=== PATIENT | male | born 1975 | race Caucasian/White ===

== ENCOUNTER 2019-01-23 09:03 | Emergency (ER) | payer OTHER ==
--- NOTE | 2019-01-23 09:17 | ED Physician Documentation ---
Low Back Pain - HISTORIAN Historian: patient - HPI Stated Complaint: back spasm Chief Complaint: Low Back Pain/ Injury Additional Information: Patient presents to ED with a 1 week history of right low back pain. Patient has a history of back pain but denies any injury/trauma. Patient works as a manual labor and was working on a project a week ago where he was bent over for most of the day. The following day he was unable to stand up straight due to the back pain. He has been taking over the counter meds with some improvement, however, today he woke up and it was worse. He denies any loss of bowel or bladder control. Patient reports some occasional pain going down the back of his legs but it is fleeting. History: back pain Onset: days ago (7) Duration: continues in ED Context: bending Where: work Severity: moderate Quality: sharp, similar- prior back pain Associated Symptoms: denies: fever, nausea, vomiting, difficulty walking Worsened By:: upright position, other (bending over) Relieved By: other (sitting, leaning forward) - ROS CONST: no problems CVS/RESP: denies: chest pain, shortness of breath EYES/ENT: denies: problems with vision MS/SKIN/LYMPH: denies: calf pain, neck pain Neuro/Psych: denies: headache GI/: denies: abdominal pain - PAST HX Past History: back pain, other. denies: back injury Other History: diabetes Type 2, hypertension Surgeries/Procedures: denies: back surgery Allergies/Adverse Reactions: Allergies Allergy/AdvReac Type Severity Reaction Status Date / Time No Known Allergies Allergy Verified 01/23/19 09:13 Home Medications: Ambulatory Orders Medication Instructions Recorded Losartan Potassium [Cozaar] 1 tab PO DAILY 01/23/19 Metformin HCl [Metformin ER 1,000 mg PO DAILY 01/23/19 Osmotic] Orphenadrine (Nf) [Norflex] 100 mg PO TID PRN #60 tab 01/23/19 predniSONE [Deltasone] 10 mg PO DAILY #12 tablet 01/23/19 - SOCIAL HX Smoking History: non-smoker Alcohol Use: none Drug Use: none - FAMILY HX Family History: none - VITAL SIGNS Vital Signs: Vital Signs Temp Pulse Resp BP Pulse Ox 97.1 F L 86 19 132/111 96 01/23/19 09:10 01/23/19 09:10 01/23/19 09:10 01/23/19 09:10 01/23/19 09:10 - REVIEWED ASSESSMENTS Nursing Assessment Reviewed: Yes Vitals Reviewed: Yes ED Results Lab/Radiology - Orders Orders: ED Orders Category Date Time Status Place IV Lock 1T Care 01/23/19 09:13 Active Ketorolac Tromethamine [Toradol] Med 01/23/19 09:13 Discontinued 30 mg IV NOW ONE LORazepam [Ativan] Med 01/23/19 09:41 Once 1 mg IV NOW ONE Orphenadrine Citrate [Norflex] Med 01/23/19 09:13 Discontinued 60 mg IV NOW ONE methylPREDNISolone SOD SUCC [SOLU-Medrol] Med 01/23/19 09:13 Discontinued 125 mg IVP NOW ONE Low Back Pain/Injury - Physical Exam General Appearance: mild distress (in pain) EENT: CR Neck: non-tender, painless ROM Resp/CVS: chest non-tender, breath sounds nml, heart sounds nml Abdomen: non-tender Back: muscle spasm (right posterior iliac crest/ Tender over right SI joint) Straight Leg Raising: Negative Left, Negative Right Neuro/Psych: oriented x3, motor nml. No: difficulty walking Skin: warm/dry Extremities: non-tender, normal range of motion, no edema Discharge Clincal Impression: Low back pain Qualifiers: Chronicity: acute Back pain laterality: right Sciatica presence: without sciatica Qualified Code(s): M54.5 - Low back pain Prescriptions: Orphenadrine (Nf) [Norflex] 100 mg PO TID PRN #60 tab PRN Reason: back pain/spasm predniSONE [Deltasone] 10 mg PO DAILY #12 tablet Referrals: Jp Clement MD [Primary Care Provider] - 2 Days Additional Instructions: 1. Norflex every 8 hours as needed for back pain/muscle spasm 2. Apply Ice or heat to affected area as needed for comfort 3. Apply over the counter biofreeze, lidocaine patches, aspercreme, and/or icyhot as needed for comfort 4. Consider massage therapy and accupuncture 5. Pain management and Physical therapy will be contacting you for an appointment. The contact number is [phone]. 6. Follow up with PCP within 1 week 7. Return to the ER for new or worsening symptoms Condition: Stable Disposition: 01 HOME, SELF-CARE Decision to Admit: NO Date of Decison to Admit: 01/23/19 Decision Time: 09:49
[2019-01-23] MEDS: ORPHENADRINE CITRATE 60 MG/2 ML ML IV ONE (09:26)
[2019-01-23] MEDS: methylPREDNISolone SOD SUCC 125 MG/2 ML VIAL IVP ONE (09:27)
[2019-01-23] MEDS: KETOROLAC TROMETHAMINE 30 MG/1ML VIAL IV ONE (09:27)
[2019-01-23] MEDS: LORazepam 2 MG/ML VIAL IV ONE (09:50)
[2019-01-23 10:01] VITALS: BP 136/89
== END 2019-01-23 10:00 | disposition home or self-care (01) ==
LOC: ED 09:03
DX: M54.5 Low back pain (principal)
CPT/HCPCS: 96374; 99283; 99284; J1885; J2060; J2930; J2360; S1016